=== PATIENT | male | born 1975 | race African-American/Black ===

== ENCOUNTER 2025-01-22 14:12 | Emergency (ER) | payer SELFPAY ==
[~2025-01-22] VITALS: Ht 185.4 cm; Wt 91.0 kg
[2025-01-22 14:25] VITALS: O2SAT 100
[2025-01-22] MEDS: ONDANSETRON HCL 4MG/2ML INJ IV ONE (15:22)
[2025-01-22] MEDS: SODIUM CHLORIDE 0.9% 1,000 ML IV ONE (15:22)
[2025-01-22] MEDS: ONDANSETRON HCL 4MG/2ML INJ ONE (15:23)
[2025-01-22] MEDS: MORPHINE SULFATE 4 MG/ML INJ (FOR IV/IM USE) IV ONE (15:23)
[2025-01-22 15:24] LABS: BASOPHILS % 0.4 % (0.0-2.0); EOSINOPHILS % 1.5 % (0.0-5.0); HEMATOCRIT. 42.2 % (42.0-52.0); HEMOGLOBIN. 14.0 g/dL (14.0-18.0); LYMPHOCYTES % 13.0 % (20.0-50.0); MEAN PLATELET VOLUME 9.0 fl (7.4-10.4); MONOCYTES % 4.1 % (2.0-8.0); NEUTROPHILS % 81.0 % (40.0-76.0); PLATELET 307 x1000/uL (130-400); RED BLOOD CELL COUNT 4.69 mill/uL (4.7-6.1); RED CELL DISTRIBUTION WIDTH 13.9 % (11.6-14.6)
[2025-01-22 15:28] VITALS: BP 195/104; PULSE 77; RESP 18; TEMP 36.9; O2SAT 100
[2025-01-22 15:46] LABS: CREATININE 0.9 mg/dL (0.6-1.3); UREA NITROGEN BLOOD 7 mg/dL (9-23)
[2025-01-22 15:48] LABS: ASPARTATE AMINOTRANSFERASE 16 IU/L (<34); BILIRUBIN DIRECT 0.2 mg/dL (<=3.0)
[2025-01-22 15:49] LABS: BILIRUBIN TOTAL 0.6 mg/dL (0.1-1.0); PROTEIN TOTAL 7.3 g/dL (6.0-8.3)
== END 2025-01-22 17:00 | disposition left against medical advice (07) ==
LOC: ER 14:12
DX: F12.10 Cannabis abuse, uncomplicated (principal); I10 Essential (primary) hypertension
CPT/HCPCS: 99284; 96374; 96361; 96375; 80076; 80048; 83690; 85025; 36415; 93005; J2405; J2270; J7030